=== PATIENT | female | born 1965 | race Caucasian/White ===

== ENCOUNTER 2016-06-12 11:00 | Day surgery (SDC) | payer OTHER ==
[~2016-06-12] VITALS: Ht 170.2 cm; Wt 68.0 kg
[~2016-06-12 11:00] MED LIST: ACYC400T2 PO; ESCI10TA3 PO; FLEC100T2 PO; KLO5T PO; LAMO100T2 PO; OXCA150T PO; Sodium Chloride LOK Flush 10 mL Syringe IV PRN; fentaNYL-PF 50 mCg/mL 2 mL Inj IVPUSH PRN
[2016-06-12 11:49] VITALS: BP 107/63; PULSE 61; RESP 16; O2SAT 97
[2016-06-12] MEDS: 0.9% Sodium Chloride 1,000 ML IV PRN ×2 (11:58→12:43)
--- NOTE | 2016-06-12 13:07 | PCM.ENDCOL ---
Colonoscopy Date of Service: Jun 12, 2016 Physician Anant Hernandez MD Indication for Procedure Screening colon cancer Post Procedure Dx & Findings: Polyp hemorrhoids Procedure Colonoscopy Prep adequate withdrawal 14 minutes PROCEDURE IN DETAIL: After unremarkable rectal examination Olympus video colonoscope was inserted into patient's anal canal and was advanced to cecum. Landmarks were identified including the ileocecal valve and the appendiceal orifice. Scope was withdrawn systematically. The mucosa of the cecum, ascending, transverse, descending, sigmoid, rectal mucosa lined with whitish, pink, smooth, glistening, normal-appearing mucosa, normal fine branching, underlying vascularity, normal haustra. The patient tolerated procedure and was transported to observation area. In the transverse colon there was a 1 mm polyp which was resected completely using cold forceps. In the rectum retroflexion was done which showed hemorrhoids and anal canal was inspected carefully in the way out and hemorrhoids noted. Impression Polyp status post complete removal Hemorrhoids Recommendation Repeat colonoscopy 5 years Presedation Assessment Risks and Benefits Informed consent was obtained from the patient after all risks and benefits including but not limited to drug reaction, infection, pain, bleeding, perforation, as well as alternatives were discussed. Patient monitoring Continuous pulse oximetry, cardiac monitoring, blood pressure monitoring, IV access, and oxygen at 2L per nasal cannula. Periprocedural Fentanyl: Fentanyl 150mcg Incrementally Midazolam: Midazolam 7mg Incrementally Complications There were no periprocedural complications identified. Post Procedure Plan Post Procedure Recommendations 1. Restrict activities today. 2. Resume normal activities in the morning. 3. Resume medications. 4. Patient informed of normal post procedure side effects as bloating, drowsiness, blood streaking in the stool. 5. average risk CRCS. If colon polyps come back as: -Hyperplastic- can repeat colonoscopy in 10 years -Tubular adenoma- repeat colonoscopy in 5 years -Tubulovillous/villous adenoma- repeat colonoscopy in 3 years -If any dysplasia- return to clinic as soon as possible 6. Please don't hesitate to call me with any questions. Anant Hernandez MD Jun 12, 2016 13:07
[2016-06-12 13:09] VITALS: BP 97/60; PULSE 58; RESP 16; O2SAT 97
[2016-06-12 13:19] VITALS: BP 90/53; PULSE 56; RESP 16; O2SAT 94
[2016-06-12 13:30] VITALS: BP 116/58; PULSE 54; RESP 16; O2SAT 97
--- NOTE | 2016-06-14 11:25 | PATH ---
SURGICAL PATHOLOGY Attending Physician:Anant Hernandez M.D. CASE STATUS: Signed Out PATIENT NAME: BLANCO NAVARRO PID: [id number] : 1965 DATE COLLECTED:06/12/2016 20:15 SPECIMEN: Colon, Biopsy CLINICAL HISTORY: 1). TRANSVERSE COLON POLYP FINAL DIAGNOSIS: 1.TRANSVERSE COLON POLYP: BENIGN COLONIC MUCOSA WITH NO DIAGNOSTIC ALTERATIONS, CONSISTENT WITH POLYPOID REDUNDANCY. NEGATIVE FOR DYSPLASIA AND MALIGNANCY. MULTIPLE MICROSCOPIC LEVELS EXAMINED. ICD10 CODE K63.5 GROSS DESCRIPTION: The specimen is received in one formalin filled container labeled with the patient's name, sublabeled "transverse colon polyp" and consists of a 0.3 x 0.2 x 0.2 CM portion of tissue. The specimen is entirely submitted in one cassette. 06/12/2016 [facility] MICRO DESCRIPTION: See diagnosis. ICD-9 CODES: CPT CODES: 1: 08723 Electronically Signed Out Cecille Garcia MD [facility] Pathology [facility] [address], [place] [address] Technical component performed at [facility], [facility] [address], [place], [address]
== END 2016-06-12 23:59 | disposition home or self-care (01) ==
LOC: END 11:00
PROVIDERS: ATTEND Internal Medicine
DX: Z12.11 Encounter for screening for malignant neoplasm of colon (principal); K63.5 Polyp of colon; K64.8 Other hemorrhoids; I48.0 Paroxysmal atrial fibrillation; G47.00 Insomnia, unspecified; F41.8 Other specified anxiety disorders
CPT/HCPCS: 45380; J2250; J7030